=== PATIENT | male | born 1955 | race Caucasian/White ===

== ENCOUNTER 2023-12-04 08:46 | Outpatient (CLI) | payer OTHER, SELFPAY | END 2023-12-04 08:47 | disposition home or self-care (01) | PROVIDERS: Visit Provider Physician Assistant Medical | DX: Z13.220 Encounter for screening for lipoid disorders (principal); Z13.228 Encounter for screening for other metabolic disorders; Z12.5 Encounter for screening for malignant neoplasm of prostate | CPT/HCPCS: 80053; 80061; G0103 ==

== ENCOUNTER 2023-12-13 16:25 | Outpatient (CLI) | payer OTHER, SELFPAY ==
--- NOTE | 2023-12-13 16:45 | CT_ITS ---
Patient: QIAN ROSAS Facility:?[facility] Patient ID:?[id number] Site Patient ID:?[id number]. Site :?[id number] Study:?CT-Chest LOW DOSE LUNG SCREENING-12/13/2023 4:37:02 PM Ordering Physician:DANITA Final Report: INDICATION: Lung cancer screening. History of smoking. High risk patient. TECHNIQUE: Low-dose lung cancer screening non-contrast CT chest. Dose reduction techniques were used. COMPARISON: None. FINDINGS: NODULES: 17 x 18 x 17 millimeters spiculated nodular opacity at the periphery of the right upper lobe (series 3, image 59 and series 4, image 54). 3 millimeter right middle lobe nodule (series 3, image 83). LUNGS AND PLEURA: Mild emphysema MEDIASTINUM: No lymphadenopathy. CORONARY ARTERY CALCIFICATION: Mild. LIMITED UPPER ABDOMEN: Normal. MUSCULOSKELETAL: Mild degenerative spondylosis. No suspicious osseous lesion IMPRESSION: 1. ACR Lung-RADS category 4B very suspicious. 18 millimeter spiculated right upper lobe nodular opacity at baseline, concerning for malignancy. Differential includes a localized infectious process or a localized area of nodular scarring. 2. Recommend further assessment with PET-CT and or tissue sampling. Please note that all CT scans at this facility use dose modulation, iterative reconstruction, and/or weight-based dosing when appropriate to reduce radiation dose to as low as reasonably achievable. Dictated by Bhavesh Aden MD @ 12/14/2023 10:03:00 AM Signed by:?Bhavesh Aden MD @12/14/2023 10:03:00 AM (Electronic Signature)
== END 2023-12-13 16:26 | disposition home or self-care (01) ==
LOC: CT 16:25
PROVIDERS: Visit Provider Physician Assistant Medical
DX: Z12.2 Encounter for screening for malignant neoplasm of respiratory organs (principal); F17.290 Nicotine dependence, other tobacco product, uncomplicated; Z72.0 Tobacco use
CPT/HCPCS: 71271

== ENCOUNTER 2024-02-19 16:25 | Outpatient (CLI) | payer OTHER, SELFPAY ==
--- NOTE | 2024-02-19 16:45 | CT_ITS ---
Patient: QIAN ROSAS Facility:?[facility] Patient ID:?[id number] Site Patient ID:?[id number]. Site :?[id number] Study:?CT-Chest w/o-02/19/2024 4:39:19 PM Ordering Physician:Yodit Rosales Final Report: Indication: Solitary pulmonary nodule Technique: Noncontrast CT chest Please note that all CT scans at this facility use dose modulation, iterative reconstruction, and/or weight-based dosing when appropriate to reduce radiation dose to as low as reasonably achievable. Comparison: 12/13/2023 Findings: Visualized thyroid is normal. Atherosclerotic changes. No enlarged lymph nodes. Upper abdomen is unremarkable. Decreased size of the nodular density involving the periphery of the right lung, now measuring 15 x 11 millimeters, previously measuring 18 x 17 millimeters. No pleural effusion. No pulmonary edema. No fracture. Impression: Decreased size of the nodular density involving the lateral aspect of the right lung. Continued follow-up in 6 months recommended. Please note that all CT scans at this facility use dose modulation, iterative reconstruction, and/or weight-based dosing when appropriate to reduce radiation dose to as low as reasonably achievable. Dictated by Jonathan Escalera MD @ 02/20/2024 10:50:21 AM Signed by:?Jonathan Escalera MD @02/20/2024 10:50:21 AM (Electronic Signature)
== END 2024-02-19 16:26 | disposition home or self-care (01) ==
LOC: CT 16:25
PROVIDERS: Visit Provider Internal Medicine
DX: R91.1 Solitary pulmonary nodule (principal)
CPT/HCPCS: 71250

== ENCOUNTER 2024-04-19 07:58 | Outpatient (CLI) | payer OTHER, SELFPAY | END 2024-04-19 07:59 | disposition home or self-care (01) | LOC: NFLDREF 04-22 14:28 | PROVIDERS: PCP Physician Assistant Medical; Visit Provider Physician Assistant Medical | DX: E78.5 Hyperlipidemia, unspecified (principal) | CPT/HCPCS: 80061 ==

== ENCOUNTER 2024-08-23 16:27 | Outpatient (CLI) | payer OTHER, SELFPAY ==
--- NOTE | 2024-08-23 16:45 | CRLHL7_ITS ---
For Patients: As a result of the Century Cures Act, medical imaging exams and procedure reports are released immediately into your electronic medical record. You may view this report before your referring provider. If you have questions, please contact your health care provider. Indication: SOLITARY PULMONARY NODULE Technique: Noncontrast CT chest Please note that all CT scans at this facility use dose modulation, iterative reconstruction, and/or weight-based dosing when appropriate to reduce radiation dose to as low as reasonably achievable. Comparison: 02/19/2024 Findings: The visualized thyroid is normal. No enlarged lymph nodes. Stable left renal cysts as visualized. Atherosclerotic changes including calcifications in the coronary arteries. Joint space narrowing and spurring at the acromioclavicular joints. No fracture. Continued decreased size of the nodular density in the periphery of the right upper lobe. Residual curvilinear densities are noted. Residual nodule component measures 7 millimeters compared to 15 x 11 millimeters on the most recent exam. Mild emphysema is present. There is no pleural effusion. No additional nodules. Airways are clear. Impression: Continued decreased size of nodular density within the periphery of the right upper lobe with residual curvilinear scarring. Findings compatible with resolving/resolved inflammatory process. Please note that all CT scans at this facility use dose modulation, iterative reconstruction, and/or weight-based dosing when appropriate to reduce radiation dose to as low as reasonably achievable. Dictated by Jonathan Escalera MD @ 08/26/2024 9:11:32 AM (Electronically Signed)
== END 2024-08-23 16:28 | disposition home or self-care (01) ==
PROVIDERS: PCP Physician Assistant Medical; Visit Provider Physician Assistant Medical
DX: R91.1 Solitary pulmonary nodule (principal)
CPT/HCPCS: 71250

== ENCOUNTER 2025-05-19 06:20 | Outpatient (CLI) | payer OTHER, SELFPAY ==
--- NOTE | 2025-05-19 08:14 | P.ANES_ITS ---
Anesthesia Charges Start Date/Time Anesthesia Start Date: 05/19/25 Anesthesia Start Time: 07:30 Stop Date/Time Anesthesia Stop Date: 05/19/25 Anesthesia Stop Time: 08:12 Coding CPT Codes CPT Codes: ANES UPR LWR GI NDSC PX - 42452 ([id number]) P3 - PATIENT W/SEVERE SYS DISEASE, QX - WATERSHED PROGRAM MANAGER ANGIC W/ MD MED DIRECTION, QK - MANAGER SALES TRAINING 2-4 CNCRNT ANES PROC
--- NOTE | 2025-05-19 08:14 | W.ANESCHARGE ---
Anesthesia Charges Start Date/Time Anesthesia Start Date: 05/19/25 Anesthesia Start Time: 07:30 Stop Date/Time Anesthesia Stop Date: 05/19/25 Anesthesia Stop Time: 08:12 Coding CPT Codes CPT Codes: ANES UPR LWR GI NDSC PX - 03677 ([id number]) P3 - PATIENT W/SEVERE SYS DISEASE, QX - SCHOOL PSYCHOLOGIST ASSISTANT ANGIC W/ MD MED DIRECTION, QK - REGISTERED PHYSICAL THERAPIST 2-4 CNCRNT ANES PROC
--- NOTE | 2025-05-19 08:42 | P.ANES_ITS ---
Anesthesia Charges Start Date/Time Anesthesia Start Date: 05/19/25 Anesthesia Start Time: 07:30 Stop Date/Time Anesthesia Stop Date: 05/19/25 Anesthesia Stop Time: 08:12 Coding CPT Codes CPT Codes: ANES UPR LWR GI NDSC PX - 44970 ([id number]) QK - MEDICAL SOCIOLOGIST 2-4 CNCRNT ANES PROC, QX - VP PACKAGING SVC W/ MED DIRECTION, P3 - PATIENT W/SEVERE SYS DISEASE
--- NOTE | 2025-05-19 08:42 | W.ANESCHARGE ---
Anesthesia Charges Start Date/Time Anesthesia Start Date: 05/19/25 Anesthesia Start Time: 07:30 Stop Date/Time Anesthesia Stop Date: 05/19/25 Anesthesia Stop Time: 08:12 Coding CPT Codes CPT Codes: ANES UPR LWR GI NDSC PX - 40431 ([id number]) QK - FOOD TECHNICIAN 2-4 CNCRNT ANES PROC, QX - TENNIS BALL COVER CEMENTER SVC W/ MED DIRECTION, P3 - PATIENT W/SEVERE SYS DISEASE
== END 2025-05-19 06:21 | disposition home or self-care (01) ==
LOC: OP CLINIC 06:20
PROVIDERS: PCP Physician Assistant Medical; Visit Provider Internal Medicine
DX: Z12.11 Encounter for screening for malignant neoplasm of colon (principal); D12.5 Benign neoplasm of sigmoid colon; K57.30 Diverticulosis of large intestine without perforation or abscess without bleeding; K21.9 Gastro-esophageal reflux disease without esophagitis; K62.89 Other specified diseases of anus and rectum; R19.5 Other fecal abnormalities; R68.89 Other general symptoms and signs
CPT/HCPCS: 00813; 43239; 45380; 45385; 88305; J2704; J3490

== ENCOUNTER 2025-08-26 16:24 | Outpatient (CLI) | payer OTHER, SELFPAY ==
--- NOTE | 2025-08-26 16:45 | CRLHL7_ITS ---
For Patients: As a result of the Century Cures Act, medical imaging exams and procedure reports are released immediately into your electronic medical record. You may view this report before your referring provider. If you have questions, please contact your health care provider. INDICATION: Lung cancer screening. Significant smoking history. TECHNIQUE: Low-dose volumetric helical scanning of the thorax was performed without IV contrast material. Coronal and sagittal reconstructions were obtained. COMPARISON: Low-dose chest CT of 08/23/2024 FINDINGS: No new or enlarged pulmonary nodule is identified. An unchanged, noncalcified 3 mm right middle lobe nodule is demonstrated on image 95 of series 3. Postinflammatory scarring in the lateral aspect of the right upper lobe is again demonstrated. No acute infiltrate is noted. There is no significant airway abnormality. No pleural effusion is demonstrated. There is no mediastinal or hilar lymph adenopathy. The heart size is normal. Calcified coronary arterial plaque is again demonstrated. Images of the upper abdomen are unremarkable except for a 6 cm left renal cyst and postop changes of cholecystectomy. IMPRESSION: 1. Negative for the purpose of lung cancer screening. Lung-RADS CATEGORY 2: BENIGN APPEARANCE OR BEHAVIOR: Continue annual screening, if eligible, with low-dose chest CT in 12 months. 2. Coronary artery disease. Please note that all CT scans at this facility use dose modulation, iterative reconstruction, and/or weight-based dosing when appropriate to reduce radiation dose to as low as reasonably achievable. Dictated by Paul Mcclellan MD @ 08/27/2025 2:21:49 PM (Electronically Signed)
== END 2025-08-26 16:25 | disposition home or self-care (01) ==
LOC: CT 16:24
PROVIDERS: PCP Physician Assistant Medical; Visit Provider Physician Assistant Medical
DX: Z12.2 Encounter for screening for malignant neoplasm of respiratory organs (principal); Z87.891 Personal history of nicotine dependence; R91.1 Solitary pulmonary nodule; J98.4 Other disorders of lung; I25.10 Atherosclerotic heart disease of native coronary artery without angina pectoris; N28.1 Cyst of kidney, acquired; Z90.49 Acquired absence of other specified parts of digestive tract
CPT/HCPCS: 71271